=== PATIENT | female | born 1985 | race Caucasian/White ===

== ENCOUNTER 2017-03-31 22:32 | Emergency (ER) | payer OTHER ==
[~2017-03-31 22:32] MED LIST: ATIVAN0.5 MG PO; BACTRIM DS TABL1 TA1 PO; FLEXERIL10 MG PO; HYDROCODONE PO; IBUPROFEN800 MG PO; LORTAB 10-3251 EACH PO; MEDROL4 MG/DOSE- PO; MOTRIN PO; PRENATAL VITAMI1 TA5 PO; PYRIDIUM PO; VOLTAREN75 MG PO; ZOVIRAX200 M1 PO
== END 2017-03-31 23:55 | disposition home or self-care (01) ==
LOC: SED 22:32
DX: J06.9 Acute upper respiratory infection, unspecified (principal); F17.210 Nicotine dependence, cigarettes, uncomplicated; Z79.899 Other long term (current) drug therapy
CPT/HCPCS: 84703; 87651; 99285

== ENCOUNTER 2017-05-21 21:26 | Emergency (ER) | payer OTHER ==
[~2017-05-21] VITALS: Ht 157.5 cm; Wt 58.5 kg
--- NOTE | ~2017-05-21 | CT71 ---
[facility] A Service of [facility] RADIOLOGY TEXT RESULTS PATIENT: MUNIR ZAMORANO LOCATION: SED : 89 UNIT #: [id number] AGE: [address]: Bryan Rushing MD SEX: F ORDER DR: [id number] [place] [id number] E MR#: [id number] #: [id number] NAME: MUNIR ZAMORANO : 1985 SEX: F STUDY DATE/TIME: 05/21/2017 21:58 UNIT: SED ROOM: STUDY DESCRIPTION: CT Head Wo Contrast Attending Physician: Bryan Rushing M.D. Ordering Physician: Bryan Rushing M.D. Primary Care Physician: Tyson Alejandro Jr., A.P.R.N. MEDICAL IMAGING REPORT This report is preliminary unless electronic signature is present. EXAM CT head, noncontrast, 05/21/2017 HISTORY 32-year-old female in the ED complaining of headache. She describes right side head pressure present for about [address] examination of the head without IV contrast. This CT exam was performed with one or more of the following radiation dose reduction techniques: automatic exposure control, adjustment of mA and/or kV according to patient size, and iterative reconstruction. FINDINGS The examination is negative. No evidence of intracranial hemorrhage, mass, mass effect, cerebral edema, hydrocephalus or additional abnormality. IMPRESSION Negative head CT examination. Dictated by... Gurjit Alford M.D. THIS IS AN ELECTRONICALLY VERIFIED REPORT Gurjit Alford M.D. at 05/22/2017 9:47 AM MELANIE/kerwin TD: 05/22/2017 08:20 JOB #: [id number] MEDICAL IMAGING REPORT [facility] A Service of [facility] RADIOLOGY TEXT RESULTS PATIENT: MUNIR ZAMORANO LOCATION: SED : 87 UNIT #: [id number] AGE: [address]: Bryan Rushing MD SEX: F ORDER DR: Page 1 of 1
[2017-05-21] MEDS ORDERED: LETROZOLE2.5 MG (21:32)
== END 2017-05-21 22:43 | disposition home or self-care (01) ==
LOC: SED 21:26
DX: G44.209 Tension-type headache, unspecified, not intractable (principal); F17.200 Nicotine dependence, unspecified, uncomplicated; F41.9 Anxiety disorder, unspecified
CPT/HCPCS: 70450; 99284